=== PATIENT | female | born 1980 | race Caucasian/White ===

== ENCOUNTER → 2019-04-30 | Outpatient (CLI) | payer BC, OTHER | LOC: MC.RAD 09:42 | DX: Z12.31 Encounter for screening mammogram for malignant neoplasm of breast (principal) ==

== ENCOUNTER → 2020-08-27 | Outpatient (CLI) | payer BC | LOC: MC.RAD 11:15 | DX: Z12.31 Encounter for screening mammogram for malignant neoplasm of breast (principal) ==

== ENCOUNTER → 2021-11-06 | Outpatient (CLI) | payer BC | LOC: MC.RAD 10:17 | DX: Z12.31 Encounter for screening mammogram for malignant neoplasm of breast (principal) ==

== ENCOUNTER → 2023-12-30 | Outpatient (CLI) | payer BC, OTHER ==
[2005-01-28 08:12] VITALS: PULSE 85; TEMP 98.2
== END ==
LOC: MC.RAD 10:15
DX: Z12.31 Encounter for screening mammogram for malignant neoplasm of breast (principal)